=== PATIENT | female | born 1985 | race Hispanic/Latino ===

== ENCOUNTER → 2016-07-18 | Day surgery (SDC) | payer OTHER ==
[~2016-07-18] VITALS: Ht 165.1 cm; Wt 73.9 kg
[~2016-07-18] MED LIST: DOCUSATE SODIU100 MG PO; IBUPROFEN800 MG PO; PERCOCET 500 MG1 TAB PO
--- NOTE | 2016-07-18 14:54 | Operative Report ---
Operative/Inv Procedure Report Surgery Date: 07/18/16 Name of Procedure: Suction D&C Pre-Operative Diagnosis: Missed Post-Operative Diagnosis: Same Estimated Blood Loss: 50ml to 100ml Surgeon/Medical Certification Specialist: ARTURO NICHOLSON MD Anesthesia: moderate sedation Operative/Procedure Note Note: Procedure note patient was taken the operating room placed supine position after adequate anesthesia patient placed in dorsolithotomy position the vagina from dorsal fashion bladder was catheterized examination under anesthesia was performed amor speculum was placed into the vagina single-tooth tenaculum placed on the Intralipid cervix gentle downward traction performed a sharp curettage the endometrial lining was performed at this point suction curette #8 curved was placed gently into the uterus suction curettage performed specimen was consistent with on gorge conception were sent to pathology once was removed from the vagina patient had been started aid in uterine contractility through the IV hemostasis was apparent patient was returned spine position she was awakened from anesthesia and transferred recovery room awake alert
== END ==
LOC: STS 03:05
DX: O02.1 Missed abortion (principal)
CPT/HCPCS: 88261; 88305; J2250